=== PATIENT | female | born 1945 | race Caucasian/White ===

== ENCOUNTER 2017-09-28 08:20 | Emergency (ER) | payer OTHER ==
[~2017-09-28] VITALS: Ht 167.6 cm; Wt 88.4 kg
[2017-09-28 08:26] VITALS: BP 147/64; PULSE 72; RESP 16; TEMP 97.9; O2SAT 99
[2017-09-28] MEDS ORDERED: SODIUM CHLORID 0.9% 500 ML INJ 500 ML IV ONE (08:45)
[2017-09-28] MEDS ORDERED: SODIUM CHLORIDE 0.9% FLUSH 10 ML FLUSH IVF PRN (08:45)
[2017-09-28 08:55] VITALS: O2SAT 97
[2017-09-28] MEDS ORDERED: COUM6TAB PO ×2 (09:17)
[2017-09-28] MEDS ORDERED: VITA200013 P-ARTICULR (09:17)
[2017-09-28] MEDS ORDERED: PRAV40TA2 PO (09:17)
[2017-09-28 09:18] VITALS: BP 139/72; PULSE 68; RESP 18; O2SAT 97
[2017-09-28 09:19] LABS: AUTOMATED NEUTROPHIL # 4.7 TH/MM3 (1.8-7.7); BASOPHIL % 0.5 % (0.0-2.0); EOSINOPHIL # 0.1 TH/MM3 (0-0.4); EOSINOPHIL % 1.4 % (0.0-4.0); HEMATOCRIT 40.1 % (35.0-46.0); HEMOGLOBIN 13.1 GM/DL (11.6-15.3); LYMPH % 26.1 % (9.0-44.0); LYMPHOCYTE # 1.9 TH/MM3 (1.0-4.8); MEAN CELL VOLUME 85.9 FL (80.0-100.0); MEAN CORPUSCULAR HEMOGLOBIN 28.1 PG (27.0-34.0); MEAN CORPUSCULAR HGB CONC 32.8 % (32.0-36.0); MEAN PLATELET VOLUME 8.1 FL (7.0-11.0); MONO % 7.4 % (0.0-8.0); MONOCYTE # 0.5 TH/MM3 (0-0.9); NEUT % 64.6 % (16.0-70.0); PLATELET COUNT 245 TH/MM3 (150-450); RED BLOOD COUNT 4.66 MIL/MM3 (4.00-5.30); RED CELL DISTRIBUTION WIDTH 13.6 % (11.6-17.2); WHITE BLOOD COUNT 7.2 TH/MM3 (4.0-11.0)
[2017-09-28 09:35] LABS: INTERNATIONAL NORMALIZED RATIO 3.7 RATIO; PROTHROMBIN TIME - PATIENT 36.8 SEC (9.8-11.6)
[2017-09-28 09:49] LABS: ALBUMIN 3.5 GM/DL (3.4-5.0); BICARBONATE 28.6 MEQ/L (21.0-32.0); CALCIUM 9.3 MG/DL (8.5-10.1); GLUCOSE,RANDOM 98 MG/DL (74-106)
[2017-09-28 09:50] LABS: BLOOD UREA NITROGEN 14 MG/DL (7-18)
[2017-09-28 09:52] LABS: ALT (GPT) 24 U/L (10-53); AST (GOT) 15 U/L (15-37); CREATININE 0.74 MG/DL (0.50-1.00); GLOMERULAR FILTRATION RATE 78 ML/MIN (>89)
[2017-09-28 09:55] LABS: ALKALINE PHOSPHATASE 99 U/L (45-117)
[2017-09-28 09:56] LABS: CHLORIDE 106 MEQ/L (98-107); SODIUM (NA) 139 MEQ/L (136-145)
[2017-09-28 10:06] LABS: TOTAL BILIRUBIN ADULT 0.5 MG/DL (0.2-1.0)
[2017-09-28 10:41] VITALS: BP 126/80; PULSE 80; RESP 18; O2SAT 98
[2017-09-28] MEDS ORDERED: IOHEXOL 350 MG/ML 10 ML VIAL (for RAD DIAG) IVCONTRAST ONE (10:42)
--- NOTE | 2017-09-28 10:57 | RADRPT ---
EXAM DATE/TIME: 09/28/2017 10:26 [place] COMPARISON: No previous studies available for comparison. INDICATIONS : Rectal bleeding for 5 days. IV CONTRAST: 85 cc Omnipaque 350 (iohexol) IV ORAL CONTRAST: No oral contrast ingested. RADIATION DOSE: 16.69 CTDIvol (mGy) MEDICAL HISTORY : None SURGICAL HISTORY : None. ENCOUNTER: Initial ACUITY: 4 - 6 days PAIN SCALE: 0/10 LOCATION: pelvis TECHNIQUE: Volumetric scanning of the abdomen and pelvis was performed. Using automated exposure control and ad justment of the mA and/or kV according to patient size, radiation dose was kept as low as reasonably achievable to obtain optimal diagnostic quality images. DICOM format image data is available electro nically for review and comparison. FINDINGS: LOWER LUNGS: The visualized lower lungs are clear. LIVER: Homogeneous density without lesion. There is no dilation of the biliary tree. No calcified gallston es. SPLEEN: Normal size without lesion. PANCREAS: Within normal limits. KIDNEYS: Normal in size and shape. There is no mass, stone or hydronephrosis. ADRENAL GLANDS: Within normal limits. VASCULAR: There is no aortic aneurysm. BOWEL/MESENTERY: The stomach, small bowel, and colon demonstrate no acute abnormality. There is no free intraperitone al air or fluid. There is a normal appendix. On axial images numbers 89 through 93 there is a focal a bnormal area of soft tissue density with multiple gas bubbles. This is located located just to the ri ght in the subcutaneous fat along the distal rectum. This measures up to 2.6 x 2.1 cm in diameter. ABDOMINAL WALL: Within normal limits. RETROPERITONEUM: There is no lymphadenopathy. BLADDER: No wall thickening or mass. REPRODUCTIVE: Within normal limits. INGUINAL: There is no lymphadenopathy or hernia. MUSCULOSKELETAL: Within normal limits for patient age. CONCLUSION: Abnormal area of soft tissue density and small gas bubbles located in the subcutaneou s fat along the right side of the distal rectum. This measures up to 2.6 x 2.1 cm in diameter and is most consistent with a perirectal abscess. Devin Ruiz MD on September 28, 2017 at 10:48 Board Certified Radiologist. This report was verified electronically.
[2017-09-28] MEDS ORDERED: CLIN300C5 PO (12:34)
--- NOTE | 2017-09-28 12:35 | PD ---
HPI Chief Complaint: GI Complaint Time Seen by Provider: 08:32 Travel History International Travel<30 days: No Contact w/Intl Traveler<30days: No Traveled to known affect area: No History of Present Illness HPI Patient is a 72-year-old female who comes in complaining of blood coming from her rectum for the past 5 days. She takes Coumadin for an artificial valve, and has been taking it as directed. She denies any abdominal pain. She says before this started, she took a bike ride and feels that the bicycle seat was irritating her buttocks. She believes that the bleeding is probably related to this. She denies any dizziness, palpitations, shortness of breath. She says she has never had this before. She denies fever or chills. Nothing seems to make her symptoms better or worse. PFSH Past Medical History High Cholesterol: Yes Influenza Vaccination: Yes ?: Not Past Surgical History Valve Replacement: Yes Social History Alcohol Use: No Tobacco Use: No Substance Use: No Allergies-Medications (Allergen,Severity, Reaction): Coded Allergies: No Known Allergies (Unverified , 09/28/17) Reported Meds & Prescriptions Reported Meds & Active Scripts Active Reported Vitamin D (Cholecalciferol) 2,000 Unit Cap 1 Cap P-ARTICULR DAILY Pravastatin 40 Mg Tab 40 Mg PO DAILY Coumadin (Warfarin) 6 Mg Tab 7 Mg PO EVERY 6TH DAY Coumadin (Warfarin) 6 Mg Tab 6 Mg PO DAILY Review of Systems Except as stated in HPI: all other systems reviewed are Neg General / Constitutional: No: Fever, Chills HENT: No: Headaches, Lightheadedness Cardiovascular: No: Chest Pain or Discomfort, Palpitations Respiratory: No: Shortness of Breath Gastrointestinal: No: Nausea, Vomiting, Abdominal Pain Genitourinary: No: Dysuria Musculoskeletal: No: Myalgias, Edema Skin: No Rash, No Change in Pigmentation Neurologic: No: Weakness, Dizziness Physical Exam Narrative GENERAL: Awake and alert, in no acute distress. SKIN: Focused skin assessment warm/dry. 2cm fluctuant lesion to the right of the anus, purple in color, blood surround the lesion. No surrounding erythema. HEAD: Atraumatic. Normocephalic. EYES: Pupils equal and round. No scleral icterus. ENT: Mucous membranes pink and moist. NECK: Trachea midline. No JVD. CARDIOVASCULAR: Regular rate and rhythm. No murmur appreciated. RESPIRATORY: No accessory muscle use. Clear to auscultation. Breath sounds equal bilaterally. GASTROINTESTINAL: Abdomen soft, non-tender, nondistended. RECTAL: Blood surround a lesion perianally. Blood surrounding the anus, unclear of blood is coming from the anus. MUSCULOSKELETAL: No obvious deformities. No clubbing. No cyanosis. No edema. NEUROLOGICAL: Awake and alert. No obvious cranial nerve deficits. Motor grossly within normal limits. Normal speech. PSYCHIATRIC: Appropriate mood and affect; insight and judgment normal. Data Data Last Documented VS Vital Signs Date Time Temp Pulse Resp B/P (MAP) Pulse Ox O2 Delivery O2 Flow Rate FiO2 09/28/17 10:41 80 18 126/80 (95) 98 Room Air 09/28/17 08:26 97.9 Orders Orders Complete Blood Count With Diff (09/28/17 08:42) Comprehensive Metabolic Panel (09/28/17 08:42) Prothrombin Time / Inr (Pt) (09/28/17 08:42) Act Partial Throm Time (Ptt) (09/28/17 08:42) Type And Screen (09/28/17 08:42) Ecg Monitoring (09/28/17 08:42) Iv Access Insert/Monitor (09/28/17 08:42) Oximetry (09/28/17 08:42) Sodium Chloride 0.9% Flush (Ns Flush) (09/28/17 08:45) Sodium Chlorid 0.9% 500 Ml Inj (Ns 500 M (09/28/17 08:45) Ct Abd/Pel W Iv Contrast(Rout) (09/28/17 ) Iohexol 350 Inj (Omnipaque 350 Inj) (09/28/17 10:42) Labs Laboratory Tests Test 09/28/17 09:05 White Blood Count 7.2 TH/MM3 Red Blood Count 4.66 MIL/MM3 Hemoglobin 13.1 GM/DL Hematocrit 40.1 % Mean Corpuscular Volume 85.9 FL Mean Corpuscular Hemoglobin 28.1 PG Mean Corpuscular Hemoglobin Concent 32.8 % Red Cell Distribution Width 13.6 % Platelet Count 245 TH/MM3 Mean Platelet Volume 8.1 FL Neutrophils (%) (Auto) 64.6 % Lymphocytes (%) (Auto) 26.1 % Monocytes (%) (Auto) 7.4 % Eosinophils (%) (Auto) 1.4 % Basophils (%) (Auto) 0.5 % Neutrophils # (Auto) 4.7 TH/MM3 Lymphocytes # (Auto) 1.9 TH/MM3 Monocytes # (Auto) 0.5 TH/MM3 Eosinophils # (Auto) 0.1 TH/MM3 Basophils # (Auto) 0.0 TH/MM3 CBC Comment DIFF FINAL Differential Comment Prothrombin Time 36.8 SEC Prothromb Time International Ratio 3.7 RATIO Activated Partial Thromboplast Time 44.1 SEC Blood Urea Nitrogen 14 MG/DL Creatinine 0.74 MG/DL Random Glucose 98 MG/DL Total Protein 7.0 GM/DL Albumin 3.5 GM/DL Calcium Level 9.3 MG/DL Alkaline Phosphatase 99 U/L Aspartate Amino Transf (AST/SGOT) 15 U/L Alanine Aminotransferase (ALT/SGPT) 24 U/L Total Bilirubin 0.5 MG/DL Sodium Level 139 MEQ/L Potassium Level 3.7 MEQ/L Chloride Level 106 MEQ/L Carbon Dioxide Level 28.6 MEQ/L Anion Gap 4 MEQ/L Estimat Glomerular Filtration Rate 78 ML/MIN [facility] Medical Decision Making Medical Screen Exam Complete: Yes Emergency Medical Condition: Yes Differential Diagnosis GI bleed versus blood blister versus abscess versus diverticulitis versus diverticulosis Narrative Course Patient is a 72-year-old female comes in because she has noticed blood coming from her rectum. Exam shows a fluctuant lesion, surrounded by a small amount of blood. His not appear to be any active bleeding at this time. IV established, labs sent. Labs show hemoglobin of 13. INR is 3.7. CT abdomen and pelvis performed shows a collection perianally. This is 2 x 2 centimeters. It is unclear if this is an abscess versus a pocket of blood. I believe the bleeding, the patient has noticed, is coming from this lesion created by irritation from her bicycle seat. I feel that if she was having a true GI bleed, her hemoglobin would have dropped after 5 days of bleeding. Patient has no symptoms currently, she has no abdominal pain, no fevers, no dizziness. Because the patient is taking Coumadin, I do not feel it beneficial to try and Lantus this lesion. She is advised to hold her Coumadin for the next 2 days. I spoke with Dr. Joyner of gastroenterology, who says that he can see her in the office on Tuesday. She is given the information for Dr. Joyner as well as Dr. Newsome for colorectal surgery if needed. She is advised to return to the ED at any time if she is feeling lightheaded, has a large amount of bleeding from her anus, has any pain. She and her are comfortable with this plan at this time. Diagnosis Primary Impression: Blood blister Referrals: Alfredo Newsome MD call for appointment Ximena Joyner MD 2 days Patient Instructions: General Instructions, Rectal Bleeding (ED) Additional Instructions: Do not take her Coumadin for the next 2 days. Follow-up with Dr. Joyner on Tuesday. Return to the ED as needed for any worsening symptoms or any worsening bleeding. Scripts Clindamycin (Clindamycin) 300 Mg Cap 300 MG PO TID for Infection for 7 Days, CAP 0 Refills Prov: Geneva Dennison MD 09/28/17 Disposition: 01 DISCHARGE HOME Condition: Stable Geneva Dennison MD Sep 28, 2017 12:35
[2017-09-28 12:46] VITALS: BP 140/76
== END 2017-09-28 13:07 | disposition home or self-care (01) ==
LOC: PHED 08:20
DX: S30.827A Blister (nonthermal) of anus, initial encounter (principal); E78.00 Pure hypercholesterolemia, unspecified; X58.XXXA Exposure to other specified factors, initial encounter; Y93.55 Activity, bike riding; Z79.01 Long term (current) use of anticoagulants
CPT/HCPCS: 74177; 80053; 85025; 85610; 85730; 86850; 86900; 86901; 96360; 99285; J7040; Q9967